=== PATIENT | female | born 1965 | race Caucasian/White ===

== ENCOUNTER → 2016-04-08 | Outpatient (CLI) | payer OTHER ==
[~2016-04-08] MED LIST: AMITRIPTYLINE H25 M1 PO; ATARAX 10MG10 MG/TAB PO; ESTRACE 1MG1 MG/TAB PO; ESTRACE1 M1 PO; ZESTRIL20 MG PO
== END ==
LOC: RAD 08:45
DX: D17.0 Benign lipomatous neoplasm of skin and subcutaneous tissue of head, face and neck (principal)

== ENCOUNTER → 2016-04-26 | Outpatient (CLI) | payer OTHER | LOC: RAD 09:40 | DX: R51 Headache (principal) ==

== ENCOUNTER → 2016-05-31 | Outpatient (CLI) | payer OTHER | LOC: LAB 10:22 | DX: B37.3 Candidiasis of vulva and vagina (principal) ==

== ENCOUNTER → 2016-08-26 | Outpatient (CLI) | payer OTHER ==
[2015-03-07 06:37] VITALS: BP 118/65
== END ==
LOC: LAB 08:58
DX: R53.81 Other malaise (principal); G47.62 Sleep related leg cramps; R06.83 Snoring

== ENCOUNTER 2016-09-06 16:00 | Outpatient (RCR) | payer OTHER ==
[2015-03-07 06:37] VITALS: BP 118/65
== END 2016-09-06 16:30 | disposition home or self-care (01) ==
LOC: PT 16:00
DX: M76.31 Iliotibial band syndrome, right leg (principal)

== ENCOUNTER → 2016-09-13 | Outpatient (CLI) | payer OTHER ==
[2015-03-07 06:37] VITALS: BP 118/65
== END ==
LOC: RAD 07:43
DX: M25.551 Pain in right hip (principal)
CPT/HCPCS: J3301; Q9967

== ENCOUNTER → 2016-09-17 | Outpatient (CLI) | payer OTHER ==
[2015-03-07 06:37] VITALS: BP 118/65
== END ==
LOC: LAB 14:57
DX: G43.009 Migraine without aura, not intractable, without status migrainosus (principal)

== ENCOUNTER → 2016-09-30 | Outpatient (CLI) | payer OTHER ==
[2015-03-07 06:37] VITALS: BP 118/65
== END ==
LOC: RAD 14:19
DX: M25.551 Pain in right hip (principal)
CPT/HCPCS: J3301; Q9967

== ENCOUNTER → 2016-10-18 | Outpatient (CLI) | payer OTHER ==
[2015-03-07 06:37] VITALS: BP 118/65
== END ==
LOC: RAD 12:00
DX: M54.5 Low back pain (principal); M51.34 Other intervertebral disc degeneration, thoracic region; M51.37 Other intervertebral disc degeneration, lumbosacral region

== ENCOUNTER → 2016-11-12 | Outpatient (CLI) | payer OTHER ==
[2015-03-07 06:37] VITALS: BP 118/65
== END ==
LOC: PT 08:23
DX: S73.11 Iliofemoral ligament sprain of hip (principal); X58.XXXD Exposure to other specified factors, subsequent encounter

== ENCOUNTER → 2017-01-19 | Outpatient (CLI) | payer OTHER ==
[2015-03-07 06:37] VITALS: BP 118/65
[2017-01-19 07:32] LABS: EOS # 0.1 (0.04-0.40); EOS % 0.7 % (1.0-5.0); HEMATOCRIT 41.9 % (37.0-47.0); HEMOGLOBIN 14.3 g/dL (12.5-16.0); LYMPH# 2.4 (1.50-4.00); MEAN CELL VOLUME 87 fl (78-100); MEAN CORPUSCULAR HEMOGLOBIN 30 pg (27-31); MEAN CORPUSCULAR HGB CONC 34 g/dL (33-37); MEAN PLATELET VOLUME 8.6 fl (7.4-10.4); MONO # 0.8 (0.20-0.80); NEU # 6.9 (1.40-6.50); PLATELET COUNT 315 K/mm3 (130-400); RED BLOOD COUNT 4.81 M/mm3 (4.10-5.30); RED CELL DISTRIBUTION WIDTH 12.3 % (11.5-14.5); WHITE BLOOD COUNT 10.2 K/mm3 (4.8-10.8)
[2017-01-19 07:45] LABS: ALBUMIN 3.9 g/dL (3.5-5.0); BUN/CREATININE RATIO 20.9 (6.0-26.0); CALCIUM 9.2 mg/dL (8.4-10.2); POTASSIUM 3.6 mmol/L (3.6-5.0); TOTAL BILIRUBIN 0.5 mg/dL (0.2-1.3); TOTAL PROTEIN 7.1 g/dL (6.3-8.2)
== END ==
LOC: LAB 07:23
PROVIDERS: Nurse Practitioner Family
DX: Z01.419 Encounter for gynecological examination (general) (routine) without abnormal findings (principal); I10 Essential (primary) hypertension

== ENCOUNTER 2017-02-15 15:00 | Outpatient (RCR) | payer OTHER ==
[2015-03-07 06:37] VITALS: BP 118/65
== END 2017-02-16 | disposition home or self-care (01) ==
LOC: PT
DX: Z47.89 Encounter for other orthopedic aftercare (principal)

== ENCOUNTER → 2017-02-28 | Outpatient (CLI) | payer OTHER ==
[2015-03-07 06:37] VITALS: BP 118/65
[2017-03-01 00:16] LABS: PROLACTIN 15.3 ng/mL (5.2-26.5)
[2017-03-01 02:53] LABS: RPR (VDRL) Non-reactive (())
[2017-03-01 03:26] LABS: ANA SCREEN with REFLEX Negative (Negative)
== END ==
LOC: LAB 07:35
PROVIDERS: Nurse Practitioner Family
DX: L65.9 Nonscarring hair loss, unspecified (principal)

== ENCOUNTER 2017-03-22 16:00 | Outpatient (RCR) | payer OTHER ==
[2015-03-07 06:37] VITALS: BP 118/65
== END 2017-03-22 16:30 | disposition still patient (30) ==
LOC: PT 16:00
DX: Z47.89 Encounter for other orthopedic aftercare (principal)

== ENCOUNTER → 2017-03-30 | Outpatient (CLI) | payer OTHER ==
[2015-03-07 06:37] VITALS: BP 118/65
== END ==
LOC: MAMMO 10:52 → LAB 10:52
DX: Z12.31 Encounter for screening mammogram for malignant neoplasm of breast (principal); L65.0 Telogen effluvium
CPT/HCPCS: G0202

== ENCOUNTER → 2017-03-31 | Outpatient (CLI) | payer OTHER ==
[2015-03-07 06:37] VITALS: BP 118/65
== END ==
LOC: RAD 12:00
DX: M25.551 Pain in right hip (principal)
CPT/HCPCS: J3301; J3490; Q9967

== ENCOUNTER → 2017-05-12 | Outpatient (CLI) | payer OTHER ==
[2015-03-07 06:37] VITALS: BP 118/65
== END ==
LOC: LAB 14:50
DX: R05 Cough (principal); B33.0 Epidemic myalgia; R50.9 Fever, unspecified

== ENCOUNTER → 2017-05-30 | Outpatient (CLI) | payer OTHER ==
[2015-03-07 06:37] VITALS: BP 118/65
[2017-05-30 18:16] LABS: BUN/CREATININE RATIO 18.3 (6.0-26.0); POTASSIUM 3.6 mmol/L (3.6-5.0)
== END ==
LOC: LAB 16:54
PROVIDERS: Nurse Practitioner Family
DX: R53.81 Other malaise (principal); G47.62 Sleep related leg cramps; R06.83 Snoring

== ENCOUNTER → 2017-07-19 | Outpatient (CLI) | payer OTHER ==
[2015-03-07 06:37] VITALS: BP 118/65
== END ==
LOC: RAD 09:37
DX: M25.522 Pain in left elbow (principal)

== ENCOUNTER → 2017-08-31 | Outpatient (CLI) | payer OTHER ==
[2015-03-07 06:37] VITALS: BP 118/65
[2017-08-31 10:51] LABS: BUN/CREATININE RATIO 13.6 (6.0-26.0); CALCIUM 9.1 mg/dL (8.4-10.2); POTASSIUM 3.8 mmol/L (3.6-5.0)
== END ==
LOC: LAB 10:26
PROVIDERS: Nurse Practitioner Family
DX: R60.9 Edema, unspecified (principal)

== ENCOUNTER → 2017-10-25 | Outpatient (CLI) | payer OTHER ==
[2015-03-07 06:37] VITALS: BP 118/65
== END ==
LOC: RAD 13:55
DX: M48.8X7 Other specified spondylopathies, lumbosacral region (principal)

== ENCOUNTER → 2017-11-23 | Outpatient (CLI) | payer OTHER ==
[2015-03-07 06:37] VITALS: BP 118/65
== END ==
LOC: RAD 08:03
DX: M47.895 Other spondylosis, thoracolumbar region (principal); M51.26 Other intervertebral disc displacement, lumbar region; M48.07 Spinal stenosis, lumbosacral region

== ENCOUNTER → 2018-02-10 | Outpatient (CLI) | payer BC ==
[2015-03-07 06:37] VITALS: BP 118/65
[2018-02-10 11:07] LABS: EOS # 0.1 (0.04-0.40); HEMATOCRIT 43.5 % (37.0-47.0); HEMOGLOBIN 14.7 g/dL (12.5-16.0); MEAN CELL VOLUME 87 fl (78-100); MEAN CORPUSCULAR HEMOGLOBIN 29 pg (27-31); MEAN CORPUSCULAR HGB CONC 34 g/dL (33-37); MEAN PLATELET VOLUME 8.8 fl (7.4-10.4); MONO # 0.6 (0.20-0.80); NEU # 4.3 (1.40-6.50); PLATELET COUNT 347 K/mm3 (130-400); RED BLOOD COUNT 5.02 M/mm3 (4.10-5.30); RED CELL DISTRIBUTION WIDTH 12.6 % (11.5-14.5)
[2018-02-10 11:30] LABS: ALBUMIN 4.2 g/dL (3.5-5.0); CALCIUM 9.3 mg/dL (8.4-10.2); POTASSIUM 4.6 mmol/L (3.6-5.0); TOTAL BILIRUBIN 0.5 mg/dL (0.2-1.3); TOTAL PROTEIN 7.3 g/dL (6.3-8.2)
== END ==
LOC: LAB 10:48
PROVIDERS: Physician Assistant
DX: Z12.39 Encounter for other screening for malignant neoplasm of breast (principal); Z00.00 Encounter for general adult medical examination without abnormal findings; M48.061 Spinal stenosis, lumbar region without neurogenic claudication; N32.81 Overactive bladder; M51.36 Other intervertebral disc degeneration, lumbar region; I10 Essential (primary) hypertension

== ENCOUNTER → 2018-04-05 | Outpatient (CLI) | payer BC ==
[2018-02-21 16:54] VITALS: BP 147/89
[~2018-04-05] MED LIST changes: +AMITRIPTYLINE H25 M2 PO; +LASIX20 M1 PO; +METOPROLOL SUC100 M1 PO; +MULTIVITAMIN1 SGL PO; +NEURONTIN300 MG/CAP; +TRIAMCINOLONE A15 G3 TP
== END ==
LOC: MAMMO 10:37
DX: Z12.31 Encounter for screening mammogram for malignant neoplasm of breast (principal); Z00.00 Encounter for general adult medical examination without abnormal findings; I10 Essential (primary) hypertension; M48.061 Spinal stenosis, lumbar region without neurogenic claudication; N32.81 Overactive bladder; M51.36 Other intervertebral disc degeneration, lumbar region

== ENCOUNTER 2018-06-14 10:00 | Outpatient (RCR) | payer BC ==
[2018-02-21 16:54] VITALS: BP 147/89
== END 2018-06-14 10:30 | disposition home or self-care (01) ==
LOC: PT 10:00
DX: M48.062 Spinal stenosis, lumbar region with neurogenic claudication (principal)

== ENCOUNTER → 2019-02-09 | Outpatient (CLI) | payer BC ==
[2018-02-21 16:54] VITALS: BP 147/89
[2019-02-09 08:12] LABS: EOS # 0.2 (0.04-0.40); EOS % 2.7 % (1.0-5.0); HEMOGLOBIN 14.2 g/dL (12.5-16.0); LYMPH# 1.7 (1.50-4.00); MEAN CELL VOLUME 86 fl (78-100); MEAN CORPUSCULAR HEMOGLOBIN 29 pg (27-31); MEAN CORPUSCULAR HGB CONC 33 g/dL (33-37); MEAN PLATELET VOLUME 8.8 fl (7.4-10.4); MONO # 0.4 (0.20-0.80); NEU # 3.3 (1.40-6.50); PLATELET COUNT 326 K/mm3 (130-400); RED BLOOD COUNT 4.98 M/mm3 (4.10-5.30); RED CELL DISTRIBUTION WIDTH 12.6 % (11.5-14.5); WHITE BLOOD COUNT 5.5 K/mm3 (4.8-10.8)
[2019-02-09 08:14] LABS: POTASSIUM 3.9 mmol/L (3.5-5.1)
[2019-02-09 08:15] LABS: CALCIUM 9.2 mg/dL (8.3-10.5)
[2019-02-09 08:17] LABS: TOTAL PROTEIN 7.3 g/dL (6.4-8.3)
[2019-02-09 08:18] LABS: TOTAL BILIRUBIN 0.6 mg/dL (0.2-1.2)
== END ==
LOC: LAB 07:53
PROVIDERS: Physician Assistant
DX: Z00.00 Encounter for general adult medical examination without abnormal findings (principal); Z13.220 Encounter for screening for lipoid disorders; Z12.39 Encounter for other screening for malignant neoplasm of breast; I10 Essential (primary) hypertension; M48.061 Spinal stenosis, lumbar region without neurogenic claudication; N32.81 Overactive bladder; N95.1 Menopausal and female climacteric states

== ENCOUNTER → 2019-05-23 | Outpatient (CLI) | payer BC ==
[2018-02-21 16:54] VITALS: BP 147/89
== END ==
LOC: MAMMO 15:41
DX: Z12.31 Encounter for screening mammogram for malignant neoplasm of breast (principal); N63.10 Unspecified lump in the right breast, unspecified quadrant

== ENCOUNTER → 2019-06-04 | Outpatient (CLI) | payer BC ==
[2018-02-21 16:54] VITALS: BP 147/89
== END ==
LOC: RAD 06:59 → MAMMO 06:59
DX: N60.01 Solitary cyst of right breast (principal); Q83.9 Congenital malformation of breast, unspecified

== ENCOUNTER 2019-11-13 16:35 | Emergency (ER) | payer BC ==
[~2019-11-13] VITALS: Wt 85.5 kg
[~2019-11-13 16:35] MED LIST changes: +DAILY VALUE1 EACH PO; -ESTRACE1 M1 PO; +ESTRACE2 M1 PO; -MULTIVITAMIN1 SGL PO
[2019-11-13] MEDS ORDERED: MAGNESIUM400 M1 PO (16:46)
[2019-11-13] MEDS ORDERED: VITAMIN D325 MC4 PO (16:46)
[2019-11-13 17:24] LABS: EOS % 0.1 % (1.0-5.0); HEMATOCRIT 44.9 % (37.0-47.0); HEMOGLOBIN 15.6 g/dL (12.5-16.0); LYMPH# 2.6 (1.50-4.00); MEAN CELL VOLUME 84 fl (78-100); MEAN CORPUSCULAR HEMOGLOBIN 29 pg (27-31); MEAN CORPUSCULAR HGB CONC 35 g/dL (33-37); MEAN PLATELET VOLUME 9.3 fl (7.4-10.4); MONO # 0.6 (0.20-0.80); NEU # 7.9 (1.40-6.50); PLATELET COUNT 322 K/mm3 (130-400); RED BLOOD COUNT 5.37 M/mm3 (4.10-5.30); RED CELL DISTRIBUTION WIDTH 12.7 % (11.5-14.5); WHITE BLOOD COUNT 11.2 K/mm3 (4.8-10.8)
[2019-11-13 17:35] LABS: ALBUMIN 4.5 g/dL (3.5-5.0)
[2019-11-13 17:36] LABS: POTASSIUM 3.7 mmol/L (3.5-5.1)
[2019-11-13 17:37] LABS: CALCIUM 9.6 mg/dL (8.3-10.5)
[2019-11-13 17:38] LABS: TOTAL PROTEIN 8.2 g/dL (6.4-8.3)
[2019-11-13 17:40] LABS: TOTAL BILIRUBIN 0.6 mg/dL (0.2-1.2)
[2019-11-13 18:32] LABS: URINE APPEARANCE CLEAR; URINE BILIRUBIN NEGATIVE (NEGATIVE); URINE BLOOD NEGATIVE (NEGATIVE); URINE COLOR YELLOW; URINE GLUCOSE NEGATIVE (NEGATIVE); URINE KETONE NEGATIVE (NEGATIVE); URINE LEUKOCYTE ESTERASE NEGATIVE (NEGATIVE); URINE MUCUS PRESENT (NOT PRESENT); URINE NITRATE NEGATIVE (NEGATIVE); URINE PROTEIN(semi-quant) TRACE mg/dL (NEGATIVE); URINE UROBILINOGEN NORMAL (NORMAL)
[2019-11-13] MEDS ORDERED: ONDANSETRON ODT8 MG PO (21:23)
[2019-11-13] MEDS ORDERED: VALIUM 2MG T2 MG/TAB PO (21:23)
[2019-11-13 21:36] VITALS: BP 33/64
[2019-11-14] MEDS ORDERED: NORCO 325 MG-51 TA1 PO (09:37)
== END 2019-11-13 21:36 | disposition home or self-care (01) ==
LOC: ED 16:35
PROVIDERS: Nurse Practitioner Family
DX: H81.12 Benign paroxysmal vertigo, left ear (principal); Z88.6 Allergy status to analgesic agent
CPT/HCPCS: J1885; J2405; J2550; J3360; J7030

== ENCOUNTER 2019-11-23 10:50 | Outpatient (RCR) | payer BC ==
[~2019-11-23 10:50] MED LIST changes: +MAGNESIUM400 M1 PO; +NORCO 325 MG-51 TA1 PO; +ONDANSETRON ODT8 MG PO; +VALIUM 2MG T2 MG/TAB PO; +VITAMIN D325 MC4 PO
== END 2019-11-23 11:00 ==
LOC: PT 10:50
DX: R42 Dizziness and giddiness (principal)

== ENCOUNTER → 2020-02-15 | Outpatient (CLI) | payer BC ==
[2020-02-15 09:19] LABS: EOS # 0.1 (0.04-0.40); EOS % 2.1 % (1.0-5.0); HEMATOCRIT 42.8 % (37.0-47.0); HEMOGLOBIN 14.3 g/dL (12.5-16.0); MEAN CELL VOLUME 87 fl (78-100); MEAN CORPUSCULAR HEMOGLOBIN 29 pg (27-31); MEAN CORPUSCULAR HGB CONC 33 g/dL (33-37); MEAN PLATELET VOLUME 8.8 fl (7.4-10.4); MONO # 0.5 (0.20-0.80); NEU # 3.3 (1.40-6.50); PLATELET COUNT 369 K/mm3 (130-400); RED BLOOD COUNT 4.94 M/mm3 (4.10-5.30); RED CELL DISTRIBUTION WIDTH 12.7 % (11.5-14.5); WHITE BLOOD COUNT 5.8 K/mm3 (4.8-10.8)
[2020-02-15 09:26] LABS: ALBUMIN 4.2 g/dL (3.5-5.0)
[2020-02-15 09:27] LABS: CALCIUM 9.4 mg/dL (8.3-10.5)
[2020-02-15 09:28] LABS: TOTAL PROTEIN 7.6 g/dL (6.4-8.3)
[2020-02-15 09:30] LABS: TOTAL BILIRUBIN 0.4 mg/dL (0.2-1.2)
[2020-02-15 09:35] LABS: URINE APPEARANCE CLEAR; URINE BILIRUBIN NEGATIVE (NEGATIVE); URINE BLOOD NEGATIVE (NEGATIVE); URINE COLOR YELLOW; URINE GLUCOSE NEGATIVE (NEGATIVE); URINE KETONE NEGATIVE (NEGATIVE); URINE LEUKOCYTE ESTERASE NEGATIVE (NEGATIVE); URINE NITRATE NEGATIVE (NEGATIVE); URINE PROTEIN(semi-quant) NEGATIVE (NEGATIVE); URINE UROBILINOGEN NORMAL (NORMAL); URINE WBC 0-1 /hpf (0-3)
[2020-02-15 09:36] LABS: URINE MUCUS PRESENT (NOT PRESENT)
== END ==
LOC: LAB 08:58
PROVIDERS: Physician Assistant
DX: Z00.00 Encounter for general adult medical examination without abnormal findings (principal); Z12.11 Encounter for screening for malignant neoplasm of colon; Z13.6 Encounter for screening for cardiovascular disorders; R10.9 Unspecified abdominal pain

== ENCOUNTER → 2020-02-21 | Outpatient (CLI) | payer BC | LOC: RAD 07:54 | DX: R10.9 Unspecified abdominal pain (principal) ==

== ENCOUNTER → 2020-02-25 | Outpatient (CLI) | payer BC | LOC: RAD 09:58 | DX: R10.30 Lower abdominal pain, unspecified (principal); Z86.69 Personal history of other diseases of the nervous system and sense organs; Z90.710 Acquired absence of both cervix and uterus ==

== ENCOUNTER → 2020-04-14 | Outpatient (CLI) | payer BC | LOC: LAB 10:39 | DX: U07.1 COVID-19 (principal) ==

== ENCOUNTER 2020-04-24 02:35 | Emergency (ER) | payer BC ==
[2020-04-24 03:13] LABS: HEMATOCRIT 48.1 % (37.0-47.0); HEMOGLOBIN 16.2 g/dL (12.5-16.0); MEAN CELL VOLUME 83 fl (78-100); MEAN CORPUSCULAR HEMOGLOBIN 28 pg (27-31); MEAN CORPUSCULAR HGB CONC 34 g/dL (33-37); MEAN PLATELET VOLUME 9.9 fl (7.4-10.4); RED BLOOD COUNT 5.82 M/mm3 (4.10-5.30); RED CELL DISTRIBUTION WIDTH 12.5 % (11.5-14.5); WHITE BLOOD COUNT 8.4 K/mm3 (4.8-10.8)
[2020-04-24 03:19] LABS: ALBUMIN 4.5 g/dL (3.5-5.0)
[2020-04-24 03:21] LABS: CALCIUM 9.5 mg/dL (8.3-10.5)
[2020-04-24 03:22] LABS: TOTAL PROTEIN 8.2 g/dL (6.4-8.3)
[2020-04-24 03:24] LABS: TOTAL BILIRUBIN 0.7 mg/dL (0.2-1.2)
[2020-04-24 03:39] LABS: BAND 1 % (0-10); NEUTROPHILS 66 % (42-75)
[2020-04-24 03:40] LABS: LYMPHOCYTE 27 % (20-51); MONOCYTE 6 % (3-10)
[2020-04-24 03:42] LABS: PLATELET COUNT 235 K/mm3 (130-400)
[2020-04-24 04:25] LABS: URINE APPEARANCE CLOUDY; URINE BILIRUBIN NEGATIVE (NEGATIVE); URINE BLOOD TRACE (NEGATIVE); URINE COLOR YELLOW; URINE GLUCOSE NEGATIVE (NEGATIVE); URINE KETONE 2+ (NEGATIVE); URINE LEUKOCYTE ESTERASE NEGATIVE (NEGATIVE); URINE NITRATE NEGATIVE (NEGATIVE); URINE PROTEIN(semi-quant) 1+ mg/dL (NEGATIVE); URINE UROBILINOGEN NORMAL (NORMAL); URINE WBC 0-1 /hpf (0-3)
[2020-04-24 04:26] LABS: URINE MUCUS PRESENT (NOT PRESENT)
[2020-04-24 04:37] LABS: D-DIMER 0.88 mg/L FEU (0.15-0.50)
[2020-04-24] MEDS ORDERED: ZOFRAN ODT4 MG PO (06:54)
[2020-04-24 07:00] VITALS: BP 128/78
== END 2020-04-24 07:10 | disposition home or self-care (01) ==
LOC: ED 02:35
PROVIDERS: Physician Assistant
DX: U07.1 COVID-19 (principal); J12.82 Pneumonia due to coronavirus disease 2019; E86.0 Dehydration
CPT/HCPCS: J0696; J2405; J7030; Q9967

== ENCOUNTER → 2020-04-29 | Outpatient (CLI) | payer BC ==
[2020-04-24 07:00] VITALS: BP 128/78
[~2020-04-29] MED LIST changes: +ZOFRAN ODT4 MG PO
== END ==
LOC: RAD 15:10
DX: U07.1 COVID-19 (principal)

== ENCOUNTER → 2020-05-21 | Outpatient (CLI) | payer BC ==
[2020-04-24 07:00] VITALS: BP 128/78
== END ==
LOC: MAMMO 15:51
DX: Z12.31 Encounter for screening mammogram for malignant neoplasm of breast (principal)

== ENCOUNTER → 2020-06-03 | Outpatient (CLI) | payer BC | LOC: RAD 15:15 | DX: J18.9 Pneumonia, unspecified organism (principal); Z86.16 Personal history of COVID-19 ==

== ENCOUNTER → 2020-07-03 | Outpatient (CLI) | payer BC | LOC: RAD 08:42 | DX: M25.552 Pain in left hip (principal) ==

== ENCOUNTER → 2020-07-28 | Outpatient (CLI) | payer BC | LOC: RAD 07:56 | DX: M25.552 Pain in left hip (principal) | CPT/HCPCS: J3301; Q9967 ==

== ENCOUNTER → 2020-11-17 | Outpatient (CLI) | payer BC | LOC: RAD 15:30 | DX: U07.1 COVID-19 (principal) ==

== ENCOUNTER → 2021-01-21 | Outpatient (CLI) | payer BC | LOC: RAD 16:17 | DX: M25.511 Pain in right shoulder (principal) ==

== ENCOUNTER → 2021-02-13 | Outpatient (CLI) | payer BC ==
[2021-02-13 10:47] LABS: BASO # 0.03 K/mm3 (0.02-0.10); EOS # 0.09 K/mm3 (0.04-0.40); EOS % 1.5 % (1.0-5.0); HEMATOCRIT 44.4 % (37.0-47.0); LYMPH# 2.22 K/mm3 (1.50-4.00); MEAN CELL VOLUME 86 fl (78-100); MEAN CORPUSCULAR HEMOGLOBIN 29 pg (27-31); MEAN CORPUSCULAR HGB CONC 34 g/dL (33-37); MEAN PLATELET VOLUME 8.8 fl (7.4-10.4); MONO # 0.48 K/mm3 (0.20-0.80); NEU # 3.18 K/mm3 (1.40-6.50); PLATELET COUNT 320 K/mm3 (130-400); RED BLOOD COUNT 5.16 M/mm3 (4.10-5.30); RED CELL DISTRIBUTION WIDTH 12.1 % (11.5-14.5)
[2021-02-13 11:09] LABS: ALBUMIN 4.2 g/dL (3.5-5.0); POTASSIUM 5.1 mmol/L (3.5-5.1)
[2021-02-13 11:11] LABS: TOTAL PROTEIN 7.6 g/dL (6.4-8.3)
[2021-02-13 11:13] LABS: TOTAL BILIRUBIN 0.6 mg/dL (0.2-1.2)
== END ==
LOC: LAB 10:28
PROVIDERS: Physician Assistant
DX: Z00.00 Encounter for general adult medical examination without abnormal findings (principal); Z13.220 Encounter for screening for lipoid disorders; Z13.29 Encounter for screening for other suspected endocrine disorder; I10 Essential (primary) hypertension; K90.9 Intestinal malabsorption, unspecified

== ENCOUNTER → 2021-03-04 | Outpatient (CLI) | payer BC | LOC: RAD 08:30 | DX: M25.511 Pain in right shoulder (principal) ==

== ENCOUNTER → 2021-05-20 | Outpatient (CLI) | payer BC | LOC: MAMMO 03-11 15:15 | DX: Z12.31 Encounter for screening mammogram for malignant neoplasm of breast (principal); Z13.820 Encounter for screening for osteoporosis ==

== ENCOUNTER → 2022-02-18 | Outpatient (CLI) | payer BC ==
[2022-02-18 09:11] LABS: BASO # 0.02 K/mm3 (0.02-0.10); EOS # 0.09 K/mm3 (0.04-0.40); EOS % 1.6 % (1.0-5.0); HEMATOCRIT 43.8 % (37.0-47.0); HEMOGLOBIN 14.8 g/dL (12.5-16.0); LYMPH# 1.95 K/mm3 (1.50-4.00); MEAN CELL VOLUME 87 fl (78-100); MEAN CORPUSCULAR HEMOGLOBIN 30 pg (27-31); MEAN CORPUSCULAR HGB CONC 34 g/dL (33-37); MONO # 0.41 K/mm3 (0.20-0.80); NEU # 3.03 K/mm3 (1.40-6.50); PLATELET COUNT 343 K/mm3 (130-400); RED BLOOD COUNT 5.01 M/mm3 (4.10-5.30); WHITE BLOOD COUNT 5.5 K/mm3 (4.8-10.8)
[2022-02-18 09:22] LABS: POTASSIUM 4.5 mmol/L (3.5-5.1)
[2022-02-18 09:23] LABS: ALBUMIN 4.2 g/dL (3.5-5.0)
[2022-02-18 09:24] LABS: CALCIUM 9.7 mg/dL (8.3-10.5)
[2022-02-18 09:25] LABS: TOTAL PROTEIN 7.3 g/dL (6.4-8.3)
[2022-02-18 09:27] LABS: TOTAL BILIRUBIN 0.5 mg/dL (0.2-1.2)
== END ==
LOC: LAB 08:44
PROVIDERS: Physician Assistant
DX: Z00.00 Encounter for general adult medical examination without abnormal findings (principal); Z12.39 Encounter for other screening for malignant neoplasm of breast; Z23 Encounter for immunization; Z13.29 Encounter for screening for other suspected endocrine disorder; M51.36 Other intervertebral disc degeneration, lumbar region; I10 Essential (primary) hypertension; N95.9 Unspecified menopausal and perimenopausal disorder; N32.81 Overactive bladder; K90.9 Intestinal malabsorption, unspecified; E78.5 Hyperlipidemia, unspecified

== ENCOUNTER → 2022-05-11 | Outpatient (CLI) | payer BC | LOC: MAMMO 15:40 | DX: Z12.31 Encounter for screening mammogram for malignant neoplasm of breast (principal) ==

== ENCOUNTER → 2023-06-01 | Outpatient (CLI) | payer BC ==
[~2023-06-01] MED LIST changes: +ALLEGRA ALLERG180 MG PO; +FAMOTIDINE20 MG PO; +MYRBETRIQ50 MG PO
== END ==
LOC: MAMMO 14:14
DX: Z12.31 Encounter for screening mammogram for malignant neoplasm of breast (principal)

== ENCOUNTER → 2024-02-29 | Outpatient (CLI) | payer OTHER ==
[2024-02-29 11:05] LABS: BASO # 0.04 K/mm3 (0.02-0.10); EOS # 0.11 K/mm3 (0.04-0.40); EOS % 1.7 % (1.0-5.0); HEMATOCRIT 45.5 % (37.0-47.0); HEMOGLOBIN 15.3 g/dL (12.5-16.0); LYMPH# 2.72 K/mm3 (1.50-4.00); MEAN CELL VOLUME 87 fl (78-100); MEAN CORPUSCULAR HEMOGLOBIN 29 pg (27-31); MEAN CORPUSCULAR HGB CONC 34 g/dL (33-37); MEAN PLATELET VOLUME 8.7 fl (7.4-10.4); MONO # 0.55 K/mm3 (0.20-0.80); NEU # 3.19 K/mm3 (1.40-6.50); PLATELET COUNT 281 K/mm3 (130-400); RED BLOOD COUNT 5.24 M/mm3 (4.10-5.30); WHITE BLOOD COUNT 6.6 K/mm3 (4.8-10.8)
[2024-02-29 11:16] LABS: ALBUMIN 4.2 g/dL (3.5-5.0)
[2024-02-29 11:17] LABS: CALCIUM 9.6 mg/dL (8.3-10.5)
[2024-02-29 11:18] LABS: TOTAL PROTEIN 7.2 g/dL (6.4-8.3)
[2024-02-29 11:20] LABS: TOTAL BILIRUBIN 0.6 mg/dL (0.2-1.2)
== END ==
LOC: LAB 10:53
PROVIDERS: Physician Assistant
DX: Z13.29 Encounter for screening for other suspected endocrine disorder (principal); I10 Essential (primary) hypertension; E78.5 Hyperlipidemia, unspecified; K90.9 Intestinal malabsorption, unspecified